=== PATIENT | female | born 1995 | race American Indian/Alaskan Native ===

== ENCOUNTER 2017-04-27 16:08 | Emergency (ER) | payer MEDICAID ==
[2017-04-27 16:08] VITALS: BMI 23.6
[2017-04-27 16:24] VITALS: BP 117/73; PULSE 89; RESP 20; TEMP 98.7; O2SAT 95
--- NOTE | 2017-04-27 16:50 | C.PDOC ---
History Of Present Illness 22 y/o female presents to the ER for evaluation of pain and swelling in her right big toe which gradually developed over the past 3 weeks. Pt states that her toe is more swollen and red today.She noted some yellow discharge around the nail area. Pt denies having fever, chills, trauma, injury, deformity, weakness, and neurovascular deficits. Time Seen by Provider: 04/27/17 16:12 Chief Complaint (Nursing): Lower Extremity Problem/Injury History Per: Patient History/Exam Limitations: no limitations Onset/Duration Of Symptoms: Days Current Symptoms Are (Timing): Still Present Severity: Moderate Past Medical History Reviewed: Historical Data, Nursing Documentation, Vital Signs Vital Signs: Last Vital Signs Temp 98.7 F 04/27/17 16:15 Pulse 89 04/27/17 16:15 Resp 20 04/27/17 16:15 BP 117/73 04/27/17 16:15 Pulse Ox 95 04/27/17 20:48 - Medical History PMH: No Chronic Diseases Surgical History: No Surg Hx Family History: States: No Known Family Hx - Social History Hx Alcohol Use: No Hx Substance Use: No - Immunization History Hx Tetanus Toxoid Vaccination: Yes Hx Influenza Vaccination: Yes Hx Pneumococcal Vaccination: Yes Review Of Systems Except As Marked, All Systems Reviewed And Found Negative. Constitutional: Negative for: Fever, Chills Musculoskeletal: Positive for: Foot Pain (pain and swelling in right big toe) Neurological: Negative for: Weakness, Numbness Physical Exam - Physical Exam Appears: Non-toxic, No Acute Distress Skin: Warm, Dry, Other (moderate edema, tenderness, and erythema over the lateral aspect of right big toenail with scant yellow discharge , no flactulance.) Extremity: Normal ROM (RLE), No Pedal Edema, No Calf Tenderness, Capillary Refill (less than 2sec to Right foot), No Deformity, No Swelling Neurological/Psych: Oriented x3, Normal Speech, Normal Motor, Normal Sensation, Normal Reflexes ED Course And Treatment O2 Sat by Pulse Oximetry: 95 (RA) Pulse Ox Interpretation: Normal Progress Note: On re-evaluation, pt is afebrile, hemodynamicaly stable. Non- toxic. Ambulatory in ED with stable gait. Right foot: exam c/w Right 1st toe paronychia lateral aspect nailbed, no cellulitis, no flactulance. FAROM, no neurovascular deficits. Pt advised. ref. to f/u with Podiatry in 2-3 days for re-eval. return if any new changes. Disposition Counseled Patient/Family Regarding: Diagnosis, Need For Followup, Rx Given - Disposition Referrals: Podiatry Clinic [Outside] [facility] [Outside] Disposition: HOME/ ROUTINE Disposition Time: 16:48 Condition: STABLE Additional Instructions: WARM SALTY WATER FOOT SOAKS WITH 1TABLE SPOON PLAIN VINEGAR 2 TIMES DAILY FOR 5 MINUTES APPLY ANTIBIOTIC CREAM TOPICALLY TO WOUND TAKE ANTIBIOTIC PRESCRIBED FOLLOW UP WITH PODIATRY CLINIC AT [facility] ON MON 12PM - 4PM RETURN TO ED IF ANY NEW CHANGES. Prescriptions: Bacitracin OINT 1 applic TP BID #1 tube Doxycycline Hyclate [Doryx] 100 mg PO BID #14 cap Instructions: Paronychia Forms: [facility] (Frisian), Work Excuse - Clinical Impression Clinical Impression: Paronychia - PA / STAFF RADIOGRAPHER / Resident Statement MD/DO has reviewed & agrees with the documentation as recorded. - Scribe Statement The provider has reviewed the documentation as recorded by the Augusta Cardozaq Provider Attestation All medical record entries made by the Miguelibhéctor were at my direction and personally dictated by me. I have reviewed the chart and agree that the record accurately reflects my personal performance of the history, physical exam, medical decision making, and the department course for this patient. I have also personally directed, reviewed, and agree with the discharge instructions and disposition.
== END 2017-04-27 17:13 | disposition home or self-care (01) ==
LOC: C.ER 16:08
DX: L03.031 Cellulitis of right toe (principal)